=== PATIENT | female | born 1940 | race Caucasian/White ===

== ENCOUNTER → 2016-02-25 | Outpatient (CLI) | payer MEDICARE, BC ==
[~2016-02-25] MED LIST: DULR PR; PANT40TA4 PO; PREG50CA PO; ULT50 PO
== END | disposition home or self-care (01) ==
LOC: HKI 15:17
PROVIDERS: ATTEND Orthopaedic Surgery
DX: Z47.1 Aftercare following joint replacement surgery (principal); Z96.652 Presence of left artificial knee joint
CPT/HCPCS: G0463

== ENCOUNTER → 2016-03-31 | Outpatient (CLI) | payer MEDICARE, BC ==
[~2016-03-31] MED LIST changes: +TRAM50TA2 PO; -ULT50 PO
== END | disposition home or self-care (01) ==
LOC: HKI 08:59
PROVIDERS: ATTEND Orthopaedic Surgery
DX: Z47.1 Aftercare following joint replacement surgery (principal); M17.12 Unilateral primary osteoarthritis, left knee; Z96.652 Presence of left artificial knee joint
CPT/HCPCS: G0463